=== PATIENT | male | born 1940 | race Caucasian/White ===

== ENCOUNTER → 2016-08-06 | Day surgery (SDC) | payer OTHER ==
[~2016-08-06] MED LIST: BUPIVACAINE/EPINEPHRINE 0.25% 50 ML VIAL ONE; KETOROLAC TROMETHAMINE 30 MG/ML (IVP) VIAL IV PUSH ONE; LACTATED RINGER'S 1000 ML INJ 1,000 ML ONE; MIDAZOLAM HCL 2 MG/2 ML VIAL ONE; ONDANSETRON HCL 4 MG/2 ML VIAL IV PUSH ONE; PROPOFOL 200 MG/20 ML AMP IV ONE; SYNT25TA PO; TAMS0.4C67 PO; ceFAZolin 2 GM PREMIX 50 ML ONE
--- NOTE | 2016-08-10 07:19 | TN ---
cc: KEN MOSS M.D. DATE OF SURGERY: 08/06/2016 PREOPERATIVE DIAGNOSIS Bilateral inguinal hernia. POSTOPERATIVE DIAGNOSIS Bilateral direct inguinal hernia. PROCEDURE Bilateral laparoscopic inguinal hernia repair with mesh. SURGEON Dr. Ken Moss INDUSTRIAL ENGINEERING TECHNICIAN Clare Sanon, [employer] General. INDICATIONS This is a pleasant 75-year-old gentleman who had complained of a left groin bulge that he noticed over the last 2-3 months. With increased activity he has a pinching pain in the left groin. He saw Dr. Henson who recommended evaluation. Physical exam demonstrated bilateral inguinal hernias. Plans were made for operative repair. INTRAOPERATIVE FINDINGS Bilateral direct inguinal hernias, larger on the left than right. ESTIMATED BLOOD LOSS Minimal. The procedure was assisted by my nurse practitioner. The skill set of a nurse practitioner was medically necessary to assist in the case and provide efficiency and visualization of the pertinent anatomy. The surgical instruments inspector was at the back table providing instrumentation while the nurse practitioner was directly assisting me throughout the entirety of the procedure. DESCRIPTION OF PROCEDURE IN DETAIL The patient was identified as Ciro Tristan, taken to the operating room and placed in a supine position. Sequential compression devices were placed on the bilateral lower extremities. Following induction of adequate general anesthesia the patient's abdomen was prepped and draped in the usual sterile fashion with Betadine. A timeout procedure was performed. Following completion of the timeout procedure to everyone's satisfaction within the room, an infraumbilical 2 cm midline incision was carried out with a scalpel. Dissection continued posteriorly to the level of the anterior rectus fascia on the left side. A preperitoneal plane was developed posterior to the rectus muscle directed towards the pubic symphysis with the surgeon's finger. The preperitoneal dissecting balloon was placed in the preperitoneal space and with the patient in slight Trendelenburg position under direct laparoscopic view inflated to a total of about 35 pumps. This allowed for identification of bilateral inferior epigastric vessels and Enrrique's ligament on the right side. The balloon was desufflated and removed and the structural balloon trocar placed in the preperitoneal space, its balloon inflated with CO2 insufflation until a level of 11 mmHg ensued. Two infraumbilical midline 5 mm trocars were then placed in the preperitoneal space under direct laparoscopic view after incision of the skin with a scalpel. Attention was turned first to the left side. Incarcerated tissue was reduced from a direct hernia defect. Photograph was taken. The direct hernia pseudo sac was tacked to the anterior Enrrique's ligament on the left side. Blunt dissection lateral and posterior to the spermatic cord was performed with blunt graspers. The anteromedial surface was examined and adherent peritoneum was reduced to the base of the spermatic cord. There was no evidence of spermatic cord lipoma. A 4 x 6 inch piece of Atrium ProLite mesh was then cut with an anterolateral slit placed around the spermatic cord and tacked into position with the ProTack device. Tacks were placed to approximate the anterolateral slit on the anterior border of Enrrique's ligament and superiorly to the direct hernia defect. A 2 x 5 inch piece of the remaining mesh was then placed over the anterolateral slit and held in position with the ProTack device. Tacks were placed along the anterior border of Enrrique's ligament, the superolateral border of the mesh as well as superior to the direct hernia defect. Care was taken to avoid tack placement inferolaterally to avoid cutaneous nerve injury. Attention was then turned to the right side. Similar blunt dissection was performed. A more shallow but definitely present direct hernia defect on the right side was uncovered. The direct hernia pseudo sac was tacked to the anterior Enrrique's ligament with the ProTack device. Blunt dissection lateral and posterior to the spermatic cord was performed and the anteromedial surface adherent peritoneum was reduced to the base of the spermatic cord. There was no evidence of spermatic cord lipoma. A 4 x 6 inch piece of Atrium ProLite mesh was cut and the anterolateral slit placed around the spermatic cord and tacked into position as was done on the left. A 2 x 5 inch piece was placed across the anterolateral slit and held in position with the ProTack device again as it was done on the left side. Care was taken to avoid tack placement inferolaterally to avoid cutaneous nerve injury. Photographs were taken of the completed repair. The remaining local anesthetic was placed in the preperitoneal space. Trocars were removed under direct visualization. There was no evidence of bleeding from the trocar sites. The preperitoneal space was desufflated through the infraumbilical port which was then removed. The anterior rectus fascial incision was closed with running 2-0 Vicryl suture. Skin incisions were approximated with 4-0 Monocryl subcuticular sutures. Dressings were applied with Mastisol and half-inch brown Steri-Strips. The patient tolerated the procedure without apparent complication. Sponge, needle and instrument counts were correct at the end of the case. MD PAZ Lo/MICHELLE /2:21 PM /7:01 AM ROXANE
== END | disposition home or self-care (01) ==
LOC: ESDC 11:20
PROVIDERS: ATTEND Surgery Trauma Surgery
DX: K40.20 Bilateral inguinal hernia, without obstruction or gangrene, not specified as recurrent (principal)
CPT/HCPCS: 00840; 49650; C1727; C1781; J0690; J1885; J2250; J2405; J3010; J7120